=== PATIENT | male | born 1990 | race Two or more races ===

== ENCOUNTER 2020-04-11 21:15 | Emergency (ER) | payer SELFPAY ==
[~2020-04-11] VITALS: Ht 177.8 cm; Wt 59.0 kg
[2020-04-11 21:15] VITALS: BP 128/74
--- NOTE | 2020-04-11 22:06 | NUR ---
Patient given written and verbal discharge instructions. Patient verbalizes understanding of instructions. Patient is ambulatory with steady gait. Refuses offer of intermediate placement. Patient given list of available shelters in surrounding area. Multiple resources provided to patient
== END 2020-04-11 22:09 | disposition home or self-care (01) ==
LOC: ER 21:17
DX: F11.10 Opioid abuse, uncomplicated (principal); Z59.0 Homelessness